=== PATIENT | female | born 2000 | race Caucasian/White ===

== ENCOUNTER 2023-01-03 18:58 | Emergency (ER) | payer BC, SELFPAY ==
[2023-01-03 19:03] VITALS: BP 124/82; PULSE 78; RESP 18; TEMP 36.8; O2SAT 100; BMI 21.6
[2023-01-03] MEDS: ONDANSETRON 2 MG/ML inj 4 MG IVP (19:47)
[2023-01-03] MEDS: 0.9 % SODIUM CHLORIDE 1000 ml 1,000 ML IV ×2 (19:48→21:02)
[2023-01-03 20:01] LABS: Basophils Absolute Auto 0.01 K/uL (0.00-0.30); Basophils Percent Auto 0.2 % (0.0-3.0); Hematocrit 35.5 % (33.0-51.0); Hemoglobin* 12.2 gm/dL (12.0-16.0); Lymphocytes Absolute Auto 2.13 K/uL (0.90-2.90); Lymphocytes Percent Auto 43.1 % (20-44); Mean Corpuscular HGB Conc 34 gm/dL (32-36); Mean Corpuscular Hemoglobin 31 pg (26-34); Mean Corpuscular Volume 90 fL (80-100); Neutrophils Percent Auto 38.7 % (42.0-72.0); Platelet Count* 208 K/uL (140-440); RDW Coefficient of Variation % 11.6 % (11.5-15.5); Red Blood Count 3.94 m/uL (4.00-5.20); White Blood Count* 4.94 K/uL (4.50-11.00)
[2023-01-03 20:19] LABS: Albumin* 4.3 g/dL (3.3-5.0); Chloride* 105 mmol/L (96-114); Potassium* 3.3 mmol/L (3.6-5.1); Slide Review Reflex No; Sodium* 137 mmol/L (135-149)
[2023-01-03 20:20] LABS: Appearance Urine Clear (Clear); Bilirubin Urine Negative (Negative); Blood Urine Negative (Negative); Color Urine Yellow (Yellow); Glucose Urine Negative (Negative); Ketones Urine Negative (Negative); Leukocyte Esterase Urine 1+ (Negative); Nitrite Urine Negative (Negative); Protein Urine Negative (Negative); Specific Gravity Urine <= 1.005 (1.000-1.030); Urobilinogen Urine 0.2 (0.2-1.0)
[2023-01-03 20:21] LABS: Amylase* 40 U/L (18-89)
[2023-01-03 20:22] LABS: Alkaline Phosphatase* 48 U/L (40-150); Aspartate Amino Transferase* 21 U/L (12-35); Bilirubin Direct* 0.1 mg/dL (0.0-0.5); Bilirubin Total* 0.2 mg/dL (0.1-1.5); Blood Urea Nitrogen* 13 mg/dL (5-24); Calcium* 8.7 mg/dL (8.4-10.6); Carbon Dioxide* 25 mmol/L (20-32); Creatinine* 0.8 mg/dL (0.5-1.5); Est. Creatinine Clearance* 100.94; Estimated Glomerular Filt Rate 108 ml/min; Glucose* 89 mg/dL (60-115); Lipase* 55 U/L (23-300)
[2023-01-03 20:23] LABS: Alanine Aminotransferase* 19 U/L (4-35); HCG Qualitative* Negative (Negative)
--- NOTE | 2023-01-03 20:33 | ED_ITS ---
HPI - Abdominal Pain General Date Seen: 01/03/23 Chief Complaint: Abdominal Pain Stated Complaint: Abdominal Pain Time Seen by Provider: 01/03/23 19:11 Source: patient Mode of arrival: ambulatory Limitations: no limitations History of Present Illness HPI narrative: 22-year-old female presents from [facility] with 3-4 days of feeling unwell, she describes abdominal pain generalized throughout her abdomen, with episodes within it that she has absolutely no pain, she notices that she thinks it might be something with her GI tract, seemingly worse when she exercises or works out, she has tried some Tylenol and today did try a mild laxative thinking maybe she might be constipated but she has had 6 episodes of loose stools today. She has also had vomiting but nothing in the last 24 hours, no rashes, no friend has a similar type illness. She denies any fevers, had some chills yesterday, is eating and drinking she thinks otherwise normal says there is no chance she is , is on no chronic medications and has no history of any surgeries. She is a student at [employer], resident of [place]. MD elicited complaint: abdominal pain Associated symptoms: nausea, vomiting, diarrhea and fever Related Data Hx Last Menstrual Period: Last month Patient : No Home Medications Medication Instructions Recorded Confirmed No Known Home Medications 01/03/23 01/03/23 Allergies Allergy/AdvReac Type Severity Reaction Status Date / Time No Known Drug Allergies Allergy Verified 01/03/23 19:02 Review of Systems Status of ROS Reports: 10 or more systems reviewed and unremarkable except as noted in History and below PFSH PFS Social History Smoking Status: Never smoker Do you use any of these nicotine containing products: None Second hand tobacco smoke exposure: No How often do you have a drink containing alcohol: never How often do you have six or more drinks on one occasion: Never AUDIT-C Alcohol total score: 0 Non-prescribed substance use: denies use service: No Exam Narrative: Exam Narrative: Patient is seen in room 5 she is in no apparent distress she is delightful pupils are equal round reactive to light there is no scleral icterus redness or TMs bilaterally are normal her oropharynx is normal neck is supple, there is no lymphadenopathy, chest is clear bilaterally no wheezing crackles noted heart sounds no clicks murmurs or gallops her abdomen is entirely soft scaphoid no tenderness to palpation bowel sounds are normal, no organomegaly, noted, no CVA tenderness she moves all extremities independently and well normal hydration status. Const: Vital Signs, click to edit/add: Vital Signs - 24 hr 01/03/23 19:03 01/03/23 20:44 Temperature 98.3 F Pulse Rate [Pulse Oximeter] 78 66 Respiratory Rate 18 16 Blood Pressure [Le ft Upper Arm] 124/82 111/72 Pulse Oximetry 100 99 Oxygen Delivery Me thod Room Air Room Air Documenting provider has reviewed patient's vital signs: yes Course Course Hospital Course: Reviewed with the patient that her laboratory work was reassuring, I would suggest [facility] as an outpatient, she has absolutely no abdominal pain now, and had none when I checked her initially. I do think that this is likely spasm of her bowel, and if she has worsening pain more localizing in her lower quadrants then I would worry about something like appendicitis and she should come back and be seen, she was comfortable with this plan, I would stop the laxative also. Vital Signs Vital signs: Initial Vital Signs Temperature 98.3 F 01/03/23 19:03 Temperature Source Temporal Artery Scan 01/03/23 19:03 Pulse Rate 78 01/03/23 19:03 Pulse Rhythm Regular 01/03/23 19:03 Respiratory Rate 18 01/03/23 19:03 Blood Pressure 124/82 01/03/23 19:03 Blood Pressure Mean 96 01/03/23 19:03 Pulse Oximetry 100 01/03/23 19:03 Oxygen Delivery Method Room Air 01/03/23 19:03 Vital Signs Temperature 98.3 F 01/03/23 19:03 Pulse Rate 78 01/03/23 19:03 Respiratory Rate 18 01/03/23 19:03 Blood Pressure 124/82 01/03/23 19:03 Pulse Oximetry 100 01/03/23 19:03 Oxygen Delivery Method Room Air 01/03/23 19:03 Temperature 98.3 F 01/03/23 19:03 Pulse Rate 66 01/03/23 20:44 Respiratory Rate 16 01/03/23 20:44 Blood Pressure 111/72 01/03/23 20:44 Pulse Oximetry 99 01/03/23 20:44 Oxygen Delivery Method Room Air 01/03/23 20:44 MDM - Abdominal Pain MDM Narrative Medical decision making narrative: Differential diagnosis considered include but not limited to viral gastroenteritis, food poisoning, bowel obstruction, Clostridium difficile, Campylobacter, Shigella, rotavirus, medication side effects, dysentery, diverticulitis, Crohn's disease and colitis Differential diagnosis includes but is not limited to viral gastroenteritis, drug food poisoning, pyloric stenosis, gastritis, pancreatitis, hepatitis, cholecystitis, appendicitis, bowel obstruction, hyperemesis, cyclic vomiting syndrome, bulimia nervosa, migraine headache, motion sickness and medication side effect. These include the life threatening complications of appendicitis, drug food poisoning and bowel obstruction. Medical Records Attestation: I reviewed the patient's medical records. Lab Data Attestation: I reviewed the patient's lab results. Lab results narrative: Mild decrease in her potassium level, we will culture urine to be 100% certain. But this does look like more of a contaminant given all the epithelial cells Labs: Lab Results 01/03/23 Range/Units 19:40 WBC 4.94 (4.50-11.00) K/uL RBC 3.94 L (4.00-5.20) m/uL Hgb 12.2 (12.0-16.0) gm/dL Hct 35.5 (33.0-51.0) % MCV 90 (80-100) fL MCH 31 (26-34) pg MCHC 34 (32-36) gm/dL RDW Coeff of Isael 11.6 (11.5-15.5) % Plt Count 208 (140-440) K/uL Neut % (Auto) 38.7 L (42.0-72.0) % Lymph % (Auto) 43.1 (20-44) % [place] % (Auto) 14.0 H (0.0-11.0) % Eos % (Auto) 4.0 (0.0-7.0) % Baso % (Auto) 0.2 (0.0-3.0) % Neut # (Auto) 1.90 (1.7-7.0) K/uL Lymph # (Auto) 2.13 (0.90-2.90) K/uL [place] # (Auto) 0.70 (0.00-0.90) K/UL Eos # (Auto) 0.20 (0.00-0.50) K/uL Baso # (Auto) 0.01 (0.00-0.30) K/uL Sodium 137 (135-149) mmol/L Potassium 3.3 L (3.6-5.1) mmol/L Chloride 105 (96-114) mmol/L Carbon Dioxide 25 (20-32) mmol/L BUN 13 (5-24) mg/dL Creatinine 0.8 (0.5-1.5) mg/dL Estimated Creat Clear 100.94 Estimated GFR 108 ml/min Glucose 89 (60-115) mg/dL Calcium 8.7 (8.4-10.6) mg/dL Total Bilirubin 0.2 (0.1-1.5) mg/dL Direct Bilirubin 0.1 (0.0-0.5) mg/dL AST 21 (12-35) U/L ALT 19 (4-35) U/L Alkaline Phosphatase 48 (40-150) U/L Total Protein 7.0 (6.0-8.3) g/dL Albumin 4.3 (3.3-5.0) g/dL Amylase 40 (18-89) U/L Lipase 55 (23-300) U/L Procalcitonin 0.08 (<0.50) ng/mL HCG, Qual Negative (Negative) Urine Color Yellow (Yellow) Urine Appearance Clear (Clear) Urine pH 7.0 (5.0-8.5) Ur Specific [place] <= 1.005 (1.000-1.030) Urine Protein Negative (Negative) Urine Glucose (UA) Negative (Negative) Urine Ketones Negative (Negative) Urine Blood Negative (Negative) Urine Nitrite Negative (Negative) Urine Bilirubin Negative (Negative) Urine Urobilinogen 0.2 (0.2-1.0) Ur Leukocyte Esterase 1+ A (Negative) Urine RBC 0-2 (0-2) Urine WBC 5-10 A (0-5) Ur Squamous Epith Cells Many A (None-Few) Urine Bacteria Few A (None) SARS-CoV-2 (PCR) Negative SARS-CoV-2 (Negative) Influenza Type A (PCR) Negative PCR FLU A (Negative) Influenza Type B (PCR) Negative PCR FLU B (Negative) RSV (PCR) Negative PCR RSV (Negative) Discharge Plan Discharge Clinical Impression: Diarrhea, Abdominal pain, Vomiting Patient Disposition: Home, Self-Care Condition: Improved Instructions: Acute Nausea and Vomiting (DC), Acute Diarrhea (ED), Abdominal Pain (ED) Additional Instructions: I discussed with the patient that I do not think this is related to a serious issue such as appendicitis, ovarian cyst, pyelonephritis, or other infectious etiology. I do think she has caught something that is going around in the community, as I am seeing a lot of students with similar symptoms. I think a reasonable course here would be watchful waiting using some Zofran, this can work both as an anti nausea medication and actually slow down diarrhea also. If the diarrhea continues I would consider using Pepto-Bismol as an agent, 3 times a day. Worsening pain you should come back and get recheck, as sometimes things change with time. Activity Level: No Restrictions Discharge Diet: Clear Liquid Prescriptions: No Action No Known Home Medications Follow Up/Referrals: Provider,Not a Local [Primary Care Provider] - Stand Alone Forms: [employer] Info Instructions
[2023-01-03 20:39] LABS: Procalcitonin* 0.08 ng/mL (<0.50); RBC Urine 0-2 (0-2); Squamous Epithelial Cell Urine Many (None-Few)
[2023-01-03 20:40] LABS: Bacteria Urine Few
[2023-01-03 20:44] VITALS: BP 111/72; PULSE 66; RESP 16; O2SAT 99
[2023-01-03 20:53] LABS: PCR FLU A Negative PCR FLU A (Negative); PCR FLU B Negative PCR FLU B (Negative); PCR RSV Negative PCR RSV (Negative); SARS PCR* Negative SARS-CoV-2 (Negative)
[2023-01-03 21:55] VITALS: BP 112/64; PULSE 56; RESP 16
== END 2023-01-03 21:55 | disposition home or self-care (01) ==
PROVIDERS: Emergency Provider Family Medicine
DX: R10.9 Unspecified abdominal pain (principal); R19.7 Diarrhea, unspecified; R11.10 Vomiting, unspecified
CPT/HCPCS: 36415; 80048; 80076; 81001; 82150; 83690; 84145; 84703; 85025; 87086; 87631; 96374; 99283; 99284; J2405; J7030